=== PATIENT | male | born 1995 | race African-American/Black ===

== ENCOUNTER 2017-09-22 01:13 | Emergency (ER) | payer SELFPAY ==
[~2017-09-22] VITALS: Ht 177.8 cm; Wt 68.2 kg
[2017-09-22 01:13] VITALS: TEMP 98.8
[2017-09-22 01:27] LABS: BASO % 0.7 % (0.0-2.0); EOS # 0.1 (0.0-0.7); EOS % 2.1 % (0-4.0); GRAN % 35.9 % (42.2-75.2); HEMATOCRIT 40.1 % (42.0-52.0); LYMPH # 3.1 (1.2-3.4); LYMPH % 55.1 % (20.0-51.0); MEAN CELL VOLUME 96 fl (80.0-100.0); MEAN CORPUSCULAR HEMOGLOBIN 33 pg (27.0-31.0); MEAN CORPUSCULAR HGB CONC 35 g/dl (33.0-37.0); MEAN PLATELET VOLUME 9.7 fl (7.4-10.4); MONO # 0.3 (0.1-0.6); PLATELET COUNT 374 K/mm3 (130-400); REDCELL DISTRIBUTION WIDTH-CV 11.4 % (11.5-14.5)
[2017-09-22 01:35] LABS: ALBUMIN 4.3 gm/dL (3.5-5.0); BILIRUBIN,TOTAL 0.4 mg/dL (0.0-1.0); CALCIUM 8.8 mg/dL (8.4-10.2); CREATININE, serum 1.17 mg/dL (0.66-1.25); POTASSIUM 3.7 mmol/L (3.4-5.0); TOTAL PROTEIN 7.8 gm/dL (6.4-8.2)
[2017-09-22 02:11] LABS: COLLECTION METHOD CATHETER
[2017-09-22 02:17] LABS: MUCOUS Present /lpf; PH 5 (5-8); SQUAMOUS EPITHELIAL None Seen /hpf; URINE APPEARANCE Clear; URINE BACTERIA None Seen /hpf; URINE BILIRUBIN Negative (NEGATIVE); URINE BLOOD 3+ (NEGATIVE); URINE COLOR Straw; URINE GLUCOSE Negative (NEGATIVE); URINE KETONE Negative (NEGATIVE); URINE LEUKOCYTE ESTERASE Negative (NEGATIVE); URINE NITRATE Negative (NEGATIVE); URINE PROTEIN(semi-quant) Negative (NEGATIVE); URINE RBC 20-50 /hpf; URINE UROBILINOGEN Negative (NEGATIVE)
[2017-09-22 02:24] LABS: TRICYCLIC ANTIDEPRESS URINE NEGATIVE
[2017-09-22 02:45] VITALS: BP 140/99; PULSE 93
[2017-09-22 06:08] LABS: ARTERIAL BLD GAS O2 SATURATION 93.5 % (92-100); ARTERIAL BLOOD GAS BASE EXCESS 0.3 (-2-2); ARTERIAL BLOOD GAS HCO3 26.8 meq/L (22-26); ARTERIAL BLOOD GAS PCO2 50.7 mmHg (35-45); ARTERIAL BLOOD GAS PO2 81.8 mmHg (80-100); ARTERIAL BLOOD GAS pH 7.34 (7.35-7.45)
== END 2017-09-22 02:45 | disposition short-term general hospital (02) ==
LOC: COL.ER 01:13
PROVIDERS: Emergency Medicine
DX: S06.0X9A Concussion with loss of consciousness of unspecified duration, initial encounter (principal); R41.82 Altered mental status, unspecified; F10.129 Alcohol abuse with intoxication, unspecified; Z23 Encounter for immunization; W18.39XA Other fall on same level, initial encounter; Y92.410 Unspecified street and highway as the place of occurrence of the external cause; Y90.8 Blood alcohol level of 240 mg/100 ml or more
CPT/HCPCS: J2250; J2765; J7030